=== PATIENT | female | born 1930 | race Caucasian/White ===

== ENCOUNTER 2017-05-22 16:52 | Observation (INO) | payer MEDICARE ==
[2017-05-22 17:46] LABS: BASOPHILS % (AUTO) 0.2 %; EOSINOPHILS % (AUTO) 0.8 %; HGB - HEMOGLOBIN 13.9 g/dL (12.0-16.0); LYMPHOCYTES # (AUTO) 0.8 10^3/uL (1.5-3.5); LYMPHOCYTES % (AUTO) 15.8 %; MEAN CORPUSCULAR HEMOGLOBIN 28.1 pg (27.0-31.0); MEAN CORPUSCULAR HGB CONC 32.7 g/dL (32.0-36.0); MEAN CORPUSCULAR VOLUME 86.1 fL (81.0-99.0); MEAN PLATELET VOLUME 8.9 fL (7.9-10.8); MONOCYTES # (AUTO) 0.8 10^3/uL (0.0-1.0); NEUTROPHILS # (AUTO) 3.7 10^3/uL (1.5-6.6); NEUTROPHILS % (AUTO) 68.2 %; PLT - PLATELET COUNT 127 10^3/uL (130-450); RED BLOOD COUNT 4.96 10^6/uL (4.20-5.40); RED CELL DISTRIBUTION WIDTH 15.3 % (12.0-15.0); WHITE BLOOD COUNT 5.4 x10^3/uL (4.8-10.8)
--- NOTE | 2017-05-22 17:46 | XRAY Preliminary Report ---
Exam: XR CHEST 2 VIEW X-RAY IMPRESSION: 1. Chronic lung disease. 2. Moderate cardiomegaly. Pacer. 3. Bilateral perihilar interstitial prominence, indeterminant as to whether this represents interstit ial edema versus an airway infection or viral syndrome. [facility] SITE ID: [id number]
[2017-05-22 17:56] LABS: CALCIUM 9.6 mg/dL (8.5-10.3); CREATININE 0.9 mg/dL (0.4-1.0)
[2017-05-22] MEDS ORDERED: ALBUTEROL NEB 2.5 MG/3 ML INH STA (17:56)
[2017-05-22] MEDS ORDERED: DEXAMETHASONE 10 MG/ML VIAL PO STA (17:56)
[2017-05-22] MEDS ORDERED: guaiFENesin/DEXTROMETHORPHAN 10 ML UDC PO STA (17:57)
[2017-05-22] MEDS ORDERED: BENZONATATE 100 MG CAPSULE PO STA (17:57)
--- NOTE | 2017-05-22 18:02 | XRAY Report ---
EXAM: CHEST RADIOGRAPHY EXAM DATE: 05/22/2017 05:21 PM. CLINICAL HISTORY: Shortness of breath and cough for 3 days. COMPARISON: None. TECHNIQUE: 2 views. FINDINGS: Lungs/Pleura: Overexpanded. Pleural and parenchymal scarring left base. Mild symmetrical perihilar in terstitial prominence. No effusion nor pneumothorax. Mediastinum: Moderate cardiomegaly. Remote sternotomy. Triple lead left subclavian biventricular pace r. Other: None. IMPRESSION: 1. Chronic lung disease. 2. Moderate cardiomegaly. Pacer. 3. Bilateral perihilar interstitial prominence, indeterminant as to whether this represents interstit ial edema versus an airway infection or viral syndrome. [facility] Referring Provider Line: [phone] SITE ID: [id number]
--- NOTE | 2017-05-22 18:04 | ED Physician Documentation ---
History of Present Illness - Stated complaint Stated Complaint: SOA - Chief complaint Chief Complaint: Resp - Additonal information Additional information: hx from pt and family arrived [place] from [facility] 5 days ago mild cough upon arrival sig worse cough next day inc dyspnea since unable to lay flat tripod position to aid resp effort no fever some chest discomfort with breathing leg edema is not new pmhx HTN HLD CAD s/p stent 2001 and CABG 2002 and hx EF is low so she has an AICD, CHF on lasix 20 QOD and 40 mg QOD compliant with meds entresto is a new rx for her Review of Systems Constitutional: denies: Fever, Chills Cardiac: reports: Chest pain / pressure Respiratory: reports: Dyspnea, Cough GI: denies: Abdominal Pain, Nausea, Vomiting Musculoskeletal: reports: Extremity swelling Endocrine: denies: Easy bruising / bleeding Immunocompromised: denies: Immunocompromised PD PAST MEDICAL HISTORY - Past Medical History Past Medical History: Yes Cardiovascular: Congestive heart failure, Hypertension, High cholesterol, Coronary artery disease, Angina, [place], Arrhythmia Respiratory: Asthma, Shortness of breath, Other Neuro: Dementia Endocrine/Autoimmune: None GI: GERD, Chronic constipation 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 : Incontinence HEENT: Chronic hearing loss Psych: Depression Musculoskeletal: Osteoarthritis, Chronic back pain Derm: None Other Past Medical History: chronic allergies - Past Surgical History Past Surgical History: Yes Cardiovascular: CABG, Coronary stent, AICD HEENT: Cataracts - Present Medications Home Medications: Ambulatory Orders Medication Instructions Recorded Confirmed Carboxymethyl/Glycerin/Poly80 1 drops EACHEYE DAILY PM 05/22/17 05/22/17 [Refresh Optive Advanced Drops] Carvedilol [Carvedilol] 6.25 mg PO BID 05/22/17 05/22/17 Clopidogrel Bisulfate [Clopidogrel] 75 mg PO DAILY 05/22/17 05/22/17 Furosemide [Furosemide] 20 mg PO BID 05/22/17 05/22/17 Lactobac No.41/Bifidobact No.7 2 cap PO DAILY PM 05/22/17 05/22/17 [Probiotic-10 3 Billion Cell Cp] Lovastatin [Lovastatin] 20 mg PO QPM 05/22/17 05/22/17 Nitroglycerin [Nitrostat] 0.4 mg SL Q5MIN PRN 05/22/17 05/22/17 Potassium Chloride [Klor-Con 10] 10 meq PO DAILY 05/22/17 05/22/17 Sacubitril/Valsartan [Entresto 24 1 tab PO BID 05/22/17 05/22/17 mg-26 mg Tablet] - Allergies Allergies/Adverse Reactions: Allergies Allergy/AdvReac Type Severity Reaction Status Date / Time No Known Drug Allergies Allergy Verified 05/22/17 17:03 - Social History Does the pt smoke?: No Smoking Status: Never smoker ETOH Use: Wine Does the pt have substance abuse?: No - Immunizations Immunizations are current?: Yes - POLST Patient has POLST: No PD ED PE NORMAL - Vitals Vital signs reviewed: Yes - HEENT HEENT: Atraumatic - Neck Neck: Supple, no meningeal sign - Cardiac Cardiac: RRR, Other (AICD / PPM L upper chest) - Respiratory Respiratory: Other (wet rales and manuel wheezing) - Abdomen Abdomen: Soft, Non tender - Extremities Extremities: No: No edema (manuel symm chronic (per family) edema) - Neuro Neuro: Alert and oriented X 3, No motor deficit, Normal speech - Psych Psych: Normal mood Results - Vitals Vitals: Vital Signs - 24 hr 05/22/17 05/22/17 16:56 18:05 Temperature 37.3 C Heart Rate 85 81 Respiratory 22 20 Rate Blood Pressure 138/98 H O2 Saturation 95 Oxygen O2 Source Room air - EKG (time done) 1705 Rate: Rate (enter#) (83) Other comments: Other comments (atrial sensed ventricula paced) - Labs Labs: Laboratory Tests 05/22/17 05/22/17 05/22/17 17:40 17:40 17:40 WBC 5.4 RBC 4.96 Hgb 13.9 Hct 42.7 MCV 86.1 MCH 28.1 MCHC 32.7 RDW 15.3 H Plt Count 127 L MPV 8.9 Neut # 3.7 Lymph # 0.8 L Overton # 0.8 Eos # 0.0 Baso # 0.0 Absolute Nucleated RBC 0.00 Nucleated RBC % 0.0 Sodium 137 Potassium 3.5 Chloride 100 L Carbon Dioxide 27 Anion Gap 10.0 BUN 18 Creatinine 0.9 Estimated GFR (MDRD) 59 L Glucose 107 H Calcium 9.6 Troponin I 0.04 B-Natriuretic Peptide 05/22/17 17:40 WBC RBC Hgb Hct MCV MCH MCHC RDW Plt Count MPV Neut # Lymph # Overton # Eos # Baso # Absolute Nucleated RBC Nucleated RBC % Sodium Potassium Chloride Carbon Dioxide Anion Gap BUN Creatinine Estimated GFR (MDRD) Glucose Calcium Troponin I B-Natriuretic Peptide 2262 H PD MEDICAL DECISION MAKING - ED course ED course: CXR does not show CHF so tried neb and steroids s relief but when BNP results it is markedly elevated despite reassuring CXR so also considered PE but pt only had a short flight and sx have been of gradual onset and worsening and she actually sounds wet on exam - so feel PE less likely given baseline EF of 30 some % feel prudent to admit for monitored diuresis, perhaps echo, could get serial trops though trop in ED neg after days of progressive sx is reassuring gave alesia, will see how she responds to that before adding nitrates with such a low EF records obtained from [facility] where pt had cardiac wup in Feb 2016 - her notes from that time state she had HLD CKD LBBB CHF CAD EF 30% V tach, she had a nuc stress and a cath and sounds like she had her ICD placed at that time records taken to hospitalist office Departure - Departure Disposition: 66 [facility] DC/Xfer Clinical Impression: Congestive heart failure Qualifiers: Congestive heart failure type: unspecified Congestive heart failure chronicity : unspecified Qualified Code(s): I50.9 - Heart failure, unspecified Dyspnea Qualifiers: Dyspnea type: unspecified Qualified Code(s): R06.00 - Dyspnea, unspecified Condition: Fair Discharge Date/Time: 05/22/17 19:05
[2017-05-22] MEDS ORDERED: CHERRY SYRUP 10 ML UDC PO ONE (18:16)
[2017-05-22] MEDS ORDERED: FUROSEMIDE 40 MG/4 ML VIAL IVP STA (18:31)
[2017-05-22] MEDS ORDERED: HYDROcod/ACETAM 5/325 MG TABLET PO PRN (18:32)
[2017-05-22] MEDS ORDERED: SODIUM CHLORIDE FLUSH 0.9% 10 ML SYRINGE IVP PRN (18:32)
[2017-05-22] MEDS ORDERED: ONDANSETRON ODT 4 MG TABLET TL PRN (18:32)
[2017-05-22] MEDS ORDERED: ACETAMINOPHEN 325 MG TABLET PO PRN (18:32)
[2017-05-22] MEDS ORDERED: ONDANSETRON 4 MG/2 ML VIAL IVP PRN (18:32)
[2017-05-22] MEDS ORDERED: NITROGLYCERIN SL 0.4 MG TABLET SL PRN (21:57)
--- NOTE | 2017-05-22 22:10 | HISTORY & PHYSICAL EXAMINATION ---
Chief Complaint - Chief Complaint Chief Complaint: Weakness and shortness of breath History of Present Illness - Admitted From Admitted From:: home - History Obtained From Records Reviewed: Last cardiology office visit note, 02/26/2016; cardiac catheterization 02/25/19 History obtained from: family (physicians) - History of Present Illness HPI Comment/Other: Mrs. Destini Dye is a pleasant 87-year-old female who is also the mother of Dr. Richard Dye and the [id number] of Dr. Disha Bishop, Chief hospitalist at [facility]. The patient has been visiting and Dr. Bishop notes that the patient has been having increasing shortness of breath with decreasing exercise tolerance. She has been spending most of her time in a recliner in the home and has been sleeping much of the time as well. After noticing this decline continue for the last 2 days following the , the patient was brought into the emergency department where she was found to be in congestive heart failure and a BNP of 2262. She is admitted to an observation bed for telemetry monitoring, fluid overlaod correction, and supplemental oxygen as needed. 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 : reports: Incontinence HEENT: reports: Chronic hearing loss Psych: reports: Depression Musculoskeletal: reports: Osteoarthritis, Chronic back pain Derm: reports: None MRSA Hx?: No Other Past Medical History: chronic allergies - Past Surgical History Cardiovascular: reports: CABG, Coronary stent, AICD HEENT: reports: Cataracts - Family & Social History Family History: Mother: (mother age 57 of septic shock), Father: , CVA/TIA (father of cva age 60), Sister: CVA/TIA, Diabetes, Type 2 , Hypertension, Brother: Cancer Family History Comment/Other: One sister after falling in the tub, breaking her hip and laying there for 2 days. Living arrangement: At home Living Situation: With spouse/s.o. - Substance History Use: Uses substance without health or social issues: NONE Abuse: Recurrent use of substance despite neg consequences: NONE Dependence: Experiences withdrawal or developed tolerances: NONE - POLST Patient has POLST: No POLST Status: Full Code Meds/Allgy - Home Medications Home Medications: Ambulatory Orders Medication Instructions Recorded Confirmed Carboxymethyl/Glycerin/Poly80 1 drops EACHEYE DAILY PM 05/22/17 05/22/17 [Refresh Optive Advanced Drops] Carvedilol [Carvedilol] 6.25 mg PO BID 05/22/17 05/22/17 Clopidogrel Bisulfate [Clopidogrel] 75 mg PO DAILY 05/22/17 05/22/17 Furosemide [Furosemide] 20 mg PO BID 05/22/17 05/22/17 Lactobac No.41/Bifidobact No.7 2 cap PO DAILY PM 05/22/17 05/22/17 [Probiotic-10 3 Billion Cell Cp] Lovastatin [Lovastatin] 20 mg PO QPM 05/22/17 05/22/17 Nitroglycerin [Nitrostat] 0.4 mg SL Q5MIN PRN 05/22/17 05/22/17 Potassium Chloride [Klor-Con 10] 10 meq PO DAILY 05/22/17 05/22/17 Sacubitril/Valsartan [Entresto 24 1 tab PO BID 05/22/17 05/22/17 mg-26 mg Tablet] - Allergies Allergies/Adverse Reactions: Allergies Allergy/AdvReac Type Severity Reaction Status Date / Time No Known Drug Allergies Allergy Verified 05/22/17 17:03 Review of Systems - Constitutional Constitutional: reports: Fatigue, Weakness. denies: Fever, Chills, Night sweats - Eyes Eyes: denies: Pain, Irritation, Blurred vision, Dipolpia - Ears, Nose & Throat Ears, Nose & Throat: denies: Ear pain, Nasal pain, Nosebleeds, Sore throat - Cardiovascular Cariovascular: reports: Edema, Exertional dyspnea, Decr. exercise tolerance, Orthopnea. denies: Chest pain, Syncope - Respiratory Respiratory: reports: Cough, SOB at rest, SOB with exertion. denies: Sputum production, Wheezing, Hemoptysis - Gastrointestinal Gastrointestinal: denies: Abdominal pain, Abdominal distention, Constipation, Diarrhea, Rectal bleeding - Genitourinary Genitourinary: denies: Dysuria, Frequency, Hematuria, Nocturia - Musculoskeletal Musculoskeletal: denies: Muscle pain, Back pain, Muscle aches, Stiffness - Integumentary Integumentary: denies: Rash, Pruritis, Lesions, Dryness - Neurological Neurological: reports: General weakness. denies: Focal weakness, Headache - Psychiatric Psychiatric: denies: Depression, Anxiety, Suicidal, Hallucinations - Endocrine Endocrine: denies: Polyuria, Polydypsia, Polyphagia - Hematologic/Lymphatic Hematologic/Lymphatic: denies: Anemia, Bruising, Petechiae, Lymphadenopathy - All Other Systems All Other Systems: reports: Reviewed and negative Exam - Vital Signs Reviewed Vital Signs: Yes Vital Signs: Vital Signs x48h Temp Pulse Resp BP BP Pulse Ox 05/22/17 19:25 129/73 05/22/17 19:23 36.9 C 81 24 120/104 H 94 - Physical Exam General Appearance: positive: No acute distress, Alert Eyes Bilateral: positive: Normal inspection, PERRL, EOMI, No lid inflammation, Conjunctivae nml, No scleral icterus ENT: positive: ENT inspection nml, Pharynx nml, No signs of dehydration Neck: positive: Nml inspection, Thyroid nml, No JVD, Trachea midline. negative : Thyromegaly Respiratory: positive: Chest non-tender, Wheezes, Rales. negative: Breath sounds nml, Rhonchi Cardiovascular: positive: Regular rate & rhythm, No murmur, No gallop Peripheral Pulses: positive: 1+ Abdomen: positive: Non-tender, No organomegaly, Nml bowel sounds, No distention. negative: Guarding, Rebound Back: positive: Nml inspection. negative: CVA tenderness (R), CVA tenderness (L ) Skin: positive: Color nml, No rash, Warm, Dry. negative: Cyanosis Extremities: positive: Non-tender, Full ROM, Pedal edema. negative: Calf tenderness, Joint swelling Neurologic/Psychiatric: positive: Oriented x3, CN's nml (2-12), Motor nml, Sensation nml, Mood/affect nml Conclusion/Plan - Problem List (1) Congestive heart failure Conclusion/Plan: The patient has a BNP of 2262, and her chest x-ray does show some pulmonary vascular markings. An echocardiogram done 02/04/2016 shows that her ejection fraction is 25-30%. We will gently diurese her and monitor her while we are correcting her fluid overload. She will be admitted to an observation bed on telemetry overnight and will obtain an echocardiogram in the morning to compare with the last one which is about 16 months old. Qualifiers: Congestive heart failure type: systolic Congestive heart failure chronicity : acute on chronic Qualified Code(s): I50.23 - Acute on chronic systolic ( congestive) heart failure (2) History of coronary artery disease Conclusion/Plan: A cardiac catheterization done on March 02, 2016 showed mild coronary artery disease with nonobstructive disease in the right coronary artery and circumflex arteries as well as sluggish but patent flow in her left anterior descending artery graft. The patient has not been complaining of any chest pain but has been short of breath. Continue home medications. (3) CKD (chronic kidney disease), stage III Conclusion/Plan: Well-managed, creatinine 0.9 on admission. We will monitor closely as we are diuresing the patient. (4) History of left bundle branch block Conclusion/Plan: Noted. The patient has an atrially sensed ventricularly paced rhythm and an AICD in place. - Lab Results Lab results reviewed: Yes Fish Bones: 05/22/17 17:40 05/22/17 17:40 - Diagnostic Imaging Results Diagnostic Imaging Results: positive: Final report reviewed Diagnostic Imaging Results Comments: EXAM: CHEST RADIOGRAPHY EXAM DATE: 05/22/2017 05:21 PM. CLINICAL HISTORY: Shortness of breath and cough for 3 days. COMPARISON: None. TECHNIQUE: 2 views. FINDINGS: Lungs/Pleura: Overexpanded. Pleural and parenchymal scarring left base. Mild symmetrical perihilar interstitial prominence. No effusion nor pneumothorax. Mediastinum: Moderate cardiomegaly. Remote sternotomy. Triple lead left subclavian biventricular pacer. Other: None. IMPRESSION: 1. Chronic lung disease. 2. Moderate cardiomegaly. Pacer. 3. Bilateral perihilar interstitial prominence, indeterminant as to whether this represents interstitial edema versus an airway infection or viral syndrome. - EKG Results EKG Interpreted Independently: Yes EKG Comparison: No prior EKG EKG Findings: Ventricular paced rhythm, rate 83. Core Measures - Anticipated LOS I expect patient to be DC'd or transferred within 96 hours.: Yes - DVT/VTE - Prophylaxis VTE/DVT Device ordered at admit?: Yes
[2017-05-22] MEDS: SODIUM CHLORIDE FLUSH 0.9% 10 ML SYRINGE IVP SCH (23:58)
[2017-05-23] MEDS ORDERED: FUROSEMIDE 40 MG TABLET PO SCH (08:00)
[2017-05-23] MEDS: SPIRONOLACTONE 25 MG TABLET PO SCH ×2 (08:34→10:28)
[2017-05-23] MEDS: SODIUM CHLORIDE FLUSH 0.9% 10 ML SYRINGE IVP SCH (08:44)
[2017-05-23] MEDS ORDERED: predniSONE 20 MG TABLET PO STA (08:56)
[2017-05-23] MEDS ORDERED: FUROSEMIDE 40 MG/4 ML VIAL IVP STA (08:57)
[2017-05-23] MEDS ORDERED: IPRATROPIUM/ALBUTEROL 3 ML NEB INH PRN (08:58)
[2017-05-23] MEDS ORDERED: SACUBITRIL PO SCH (09:00)
[2017-05-23] MEDS ORDERED: CARVEDILOL 3.125 MG TABLET PO SCH (09:00)
[2017-05-23] MEDS ORDERED: VALSARTAN PO SCH (09:00)
[2017-05-23] MEDS ORDERED: NON FORMULARY MED (Carvedilol [Carvedilol] 6.25 MG) PO SCH (09:00)
[2017-05-23] MEDS ORDERED: CLOPIDOGREL 75 MG TABLET PO SCH (09:00)
[2017-05-23] MEDS ORDERED: POLYETHYLENE GLYCOL 3350 17 GM PACKET PO SCH (09:00)
[2017-05-23] MEDS: ALBUTEROL NEB 2.5 MG/3 ML INH SCH ×3 (09:02→16:37)
[2017-05-23] MEDS ORDERED: IOPAMIDOL-300 100 ML VIAL ONE (13:14)
[2017-05-23] MEDS ORDERED: IOPAMIDOL-300 100 ML VIAL IVP ONE (14:05)
--- NOTE | 2017-05-23 14:28 | CT Preliminary Report ---
Exam: CT CHEST ANGIO (PE) IMPRESSION: 1. Mildly suboptimal exam due to respiratory motion at the lung bases. However, no evidence of pulmon roseann emboli. 2. Multifocal air trapping with bronchial wall thickening suggesting airways disease such as bronchit is. There is also saber-sheath configuration of the trachea, which is highly correlated with COPD. 3. Abnormal caliber of the main pulmonary artery, a soft marker of pulmonary hypertension. 4. Cardiomegaly, most prominence of the left ventricle and atrium, with reflux of contrast into the I VC suggesting right heart failure as provided in the history. There is also a small left pleural effu seb. 5. 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 6. Few scattered small (less than size is only a) nonspecific solid pulmonary nodules with findings o f prior granulomatous disease. Per Fleischner guidelines In a low-risk patient no follow-up is necess roseann. In a high risk patient consider follow-up CT chest in 12 months for reevaluation. 6. Additional findings as above.. [facility] SITE ID: [id number]
--- NOTE | 2017-05-23 14:54 | CT Report ---
EXAM: CT ANGIOGRAM CHEST EXAM DATE: 05/23/2017 02:05 PM. CLINICAL HISTORY: New right-sided heart failure and shortness of breath after travel. COMPARISON: Chest radiograph 05/22/2017. TECHNIQUE: Routine helical imaging was performed through the chest in the pulmonary arterial phase. I V Contrast: Amt/type. Reconstructions: Coronal 3-D MIP reconstructions.Sagittal and coronal. In accordance with CT protocol optimization, one or more of the following dose reduction techniques w ere utilized for this exam: automated exposure control, adjustment of mA and/or KV based on patient s ize, or use of iterative reconstructive technique. FINDINGS: Note that the extreme right posterior lateral lung base is excluded from the [id number]. Pulmonary Arteries: Diagnostic quality: Adequate through the segmental arteries, with the exception of the lung bases, gr eater on the right, due to mild respiratory motion artifact. No evidence for acute or chronic pulmona ry emboli. RV/LV is within normal limits. There is no interventricular septal bowing. There is reflux of contras t into the IVC and hepatic veins suggesting right heart dysfunction as provided in the history. Lungs/Pleura: -No mass or consolidation. There is a small layering left pleural effusion. No right pleural effusion . No evidence of edema. No pneumothorax. There is geographic attenuation throughout both lungs with m ild circumferential airway wall thickening suggesting airways disease such as bronchitis and air-trap ping. The central airways are patent. There is saber-sheath configuration of the upper trachea which has been highly correlated with COPD (5/29). -Respiratory motion artifact could obscure small nodules. There is a nonspecific multangular 5 mm lef t upper lobe pulmonary nodule near the level of the main pulmonary artery bifurcation (5/62). Nonspec ific solid 5 mm nodule versus possible mucous plug in the superior segment left lower lobe (5/74). No nspecific subpleural nodule near the right lung apex peripherally measures 3 mm (5/30). A few scatter ed benign calcified granulomata are present in keeping with prior granulomatous disease, for example at the right lung apex (4/34). Mediastinum: The heart is moderately enlarged with greatest enlargement of the left atrium and ventri carmen. No significant pericardial effusion. AICD/pacemaker leads noted as well as prior median sternoto my and CABG. No abnormally enlarged mediastinal or hilar lymph nodes. Calcified left hilar lymph node s are present in keeping with prior granulomatous disease. Main pulmonary arterial caliber is increas ed measuring 35 mm, a soft marker of pulmonary hypertension. Thoracic Aorta: There is fusiform aneurysm of the ascending thoracic aorta measuring up to 4.5 cm, wi th diameter normalizing in the aortic arch. Contrast bolus timing does not allow evaluation for disse ction. There is moderate aortic arch and descending thoracic aortic calcific atherosclerosis. Upper Abdomen: Partially visualized colonic diverticulosis without evidence of acute diverticulitis. Otherwise unremarkable. Other: Left chest wall subclavian multilead pacemaker/AICD. No acute osseous abnormality. No suspicious focal osseous lesion. There is diffuse osseous deminerali zation. Patient is post median sternotomy. There is accentuated thoracic kyphosis with multilevel deg enerative spondylosis and S-shaped thoracolumbar scoliosis. IMPRESSION: 1. Mildly suboptimal exam due to respiratory motion at the lung bases. However, no evidence of pulmon roseann emboli. 2. Multifocal air trapping with bronchial wall thickening suggesting airways disease such as bronchit is. There is also saber-sheath configuration of the trachea, which is highly correlated with COPD. 3. Abnormal caliber of the main pulmonary artery, a soft marker of pulmonary hypertension. 4. Cardiomegaly, most prominent of the left ventricle and atrium, with reflux of contrast into the IV C suggesting right heart failure as provided in the history. There is also a small left pleural effus ion. 5. 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 6. A few scattered small (<6 mm) nonspecific solid pulmonary nodules with findings of prior granuloma tous disease. Per Fleischner guidelines, in a low-risk patient no follow-up is necessary. In a high r isk patient consider follow-up CT chest in 12 months for reevaluation. 6. Additional findings as above. [facility] Referring Provider Line: [phone] SITE ID: [id number]
--- NOTE | 2017-05-23 16:36 | Discharge Plan ---
Discharge Plan Disposition: Home, Self Care Condition: Fair Prescriptions: Ipratropium/Albuterol [Duoneb] 3 ml INH RTQID PRN #120 neb PRN Reason: Shortness Of Air/Wheezing Prednisone 10 mg PO DAILY #1 tab.ds.pk Spironolactone [Aldactone] 25 mg PO DAILY #30 tablet Diet: Low Sodium Activity Restrictions: Activity as Tolerated Shower Restrictions: No Driving Restrictions: No Additional Instructions or Follow Up instructions: you were placed in observation because of severe shortness of breath. We have found you to have two problems: one with severe bronchitis requiring nebulizer treatment and steroids, and the other was new right sided heart failure on top of decompensated old left heart failure. We did speak to the Wellness Rn bone plant supervisor for [facility] Dr. Staples, and he confirmed that the right heart was normal a year ago. So we did a pulmonary angiogram to make sure you did not have a pulmonary embolic clot causing this problem since you just have been travelling. That angiogram was negative except for embolism but did have a thoracic aortic aneurysm of 4.5 cm. You do have severe right sided heart failure on the CT of the chest as well. You will need to finish a course of steroids and a course of antibiotics and those have been given to you. You also need to resume duoneb which is a bronchial tube dilator you used years ago but stopped. You have the machine at home and need to refill the duoneb drops that go in the machine. We have also started you on spironolactone. We are asking you to see a Wellness Rn in the group as soon as possible. You have an appointment for MondayMay 29, at 9 am, Dr. Macias. No Smoking: If you smoke, Please STOP! Call for help. Follow-up with: SAMIR GUAJARDO MD [Primary Care Provider] -
[2017-05-23 17:39] VITALS: BP 106/58
[2017-05-23] MEDS ORDERED: CARBOXYMETHYL EACHEYE SCH (21:00)
[2017-05-23] MEDS ORDERED: [UNRECOGNIZED DRUG - OTHER] EACHEYE SCH (21:00)
[2017-05-23] MEDS ORDERED: ATORVASTATIN 10 MG TABLET PO SCH (21:00)
[2017-05-23] MEDS ORDERED: [UNRECOGNIZED DRUG - REMARK] PO SCH (21:00)
[2017-05-23] MEDS ORDERED: GLYCERIN EACHEYE SCH (21:00)
[2017-05-23] MEDS ORDERED: POLY80 EACHEYE SCH (21:00)
[2017-05-23] MEDS ORDERED: NON FORMULARY MED (Lovastatin [Lovastatin] 20 MG) PO SCH (21:00)
--- NOTE | 2017-05-24 20:39 | DISCHARGE SUMMARY ---
"Discharge Summary Admit Date: 05/22/17 Discharge Date: 05/23/17 Discharging Provider: Shadia Mcclelland MD Primary Care Provider: Maria E Doss MD [facility], [place], [place] Code Status: Do Not Attempt Resuscitation Condition at Discharge: Fair Discharge Disposition: 01 Home, Self Care - DIAGNOSES Discharge Diagnoses with Status of Each Condition: Acute on chronic systolic congestive heart failure Class 3 with LV diastolic dysfunction acute right sided heart failure acute bronchitis due to viral infection History of yuhaaviatam coronary artery disease Chronic kidney disease stage 3 - HPI History of Present Illness: Mrs. Destini Dye is a pleasant 87-year-old female who is also the mother of Dr. Richard Dye and the [id number]-lal of Dr. Disha Bishop, Chief hospitalist at [facility]. The patient has been visiting and Dr. Bishop notes that the patient has been having increasing shortness of breath with decreasing exercise tolerance. She has been spending most of her time in a recliner in the home and has been sleeping much of the time as well. After noticing this decline continue for the last 2 days following the , the patient was brought into the emergency department where she was found to be in congestive heart failure and a BNP of 2262. She is admitted to an observation bed for telemetry monitoring, fluid overlaod correction, and supplemental oxygen as needed. History - Past Medical History Cardiovascular: reports: Congestive heart failure, Hypertension, High cholesterol, Coronary artery disease, Angina, [place], Arrhythmia Respiratory: reports: Asthma, Shortness of breath, Other Neuro: reports: Dementia Endocrine/Autoimmune: reports: None GI: reports: GERD, Chronic constipation [employer]: reports: None : reports: Incontinence HEENT: reports: Chronic hearing loss Psych: reports: Depression Musculoskeletal: reports: Osteoarthritis, Chronic back pain Derm: reports: None MRSA Hx?: No Other Past Medical History: chronic allergies - Past Surgical History Cardiovascular: reports: CABG, Coronary stent, AICD HEENT: reports: Cataracts - CONSULTS | PROCEDURES Procedures: 1. Chest x-ray showing chronic lung disease, moderate cardiomegaly, pacer, bilateral perihilar interstitial prominence. Indeterminate as to whether this represents interstitial edema versus airway infection or viral syndrome. 2. Chest/CTA. No pulmonary emboli. Mildly suboptimal due to respiratory motion. Multifocal air trapping with bronchial wall thickening suggesting airway disease such as bronchitis. Saber-sheath configuration of the trachea which is highly correlated with COPD. Abnormal caliber of the main pulmonary artery, a soft marker of pulmonary hypertension. Cardiomegaly, most prominent of the left ventricle and atrium. Reflux of contrast into the IVC suggesting right heart failure as provided in the history. Small left pleural effusion. 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 Few scattered less than 6 mm nonspecific solid pulmonary nodules with findings of prior granulomatous disease. Per Fleischner guidelines, in a low risk patient, no further follow-up is necessary. In a high risk patient consider follow-up CT in 12 months for reevaluation. 3. Echocardiogram. Final reading is pending. Cardiology should call for final report. Initial report shows severe left ventricular enlargement. Left ventricular wall thickness is normal. Overall left ventricular systolic function is moderately to severely impaired with an ejection fraction of 30-35% . Moderate global hypokinesis of left ventricle contractility. Diastole are difficult is difficult to assess with arrhythmia. Severe right ventricular enlargement. Right ventricular systolic function is at the low end of normal. Pacemaker leads seen in right atrium and right ventricle. Severe increase in the left atrial volume index. Moderate right atrial enlargement. Mild to moderate aortic regurgitation. Moderate to severe mitral regurgitation. Mild to moderate tricuspid regurgitation. Moderately abnormal right heart pressures. Right ventricular systolic pressure at rest is 63 mmHg. Moderate pulmonic regurgitation. - HOSPITAL COURSE Hospital Course: She was initially treated as acute COPD exacerbation in the emergency room. Her chest x-ray was really unremarkable other than mild air trapping. She received bronchodilators and steroids. When her BNP came back severely elevated she was then treated as acute systolic congestive heart failure. She was placed in observation, received IV Lasix for several doses. She was also doubled up on her oral lasix dose from 20 mg to 40 mg po daily. She did achieve adequate diuresis but BNP did not move much. However she was clinically much improved. On admission she had gurgling lungs, severe wheezing , tachypnea, air hunger, leg edema and use of accessory muscles. With treatment , at discharge, lungs had prolonged and exhalation, but no longer wheezing and crackles have resolved. Edema had resolved. CT angiogram of chest was done to make sure that this woman who had been traveling recently did not have a PE. Her deburrer was not in the office but we spoke to Dr. Staples who was on -call for her deburrer Dr. Stephen at [facility], [place], [place]. He reviewed the echocardiogram from February 2016 and her new right heart dysfunction is noted. The patient is discharged with new medications of spironolactone, Medrol Dosepak , and DuoNeb. We did attempt to get a nebulizer machine for her while here. However her Medicare advantage plan was not accepted in any of the local pharmacies on the [place]. She states that she has a nebulizer machine at home and she will wait at home to use her new DuoNeb on that machine at home. Her Lasix was increased to 40 mg a day. She does admit that sometimes she does not like to take it because of urinary incontinence. She was strongly encouraged to make sure she stays on 40 mg a day. She took home pads, underwear, and she was delighted with how it help with incontinence. She will be looking to get a durable medical good prescription from her primary care provider to help her with this at home. Appointment was attempted for Monday of this week. The patient flies back to [place] on . However there were no openings in the patient is to be seen on Monday morning with her deburrer. - ALLERGIES Allergies/Adverse Reactions: Allergies Allergy/AdvReac Type Severity Reaction Status Date / Time No Known Drug Allergies Allergy Verified 05/22/17 17:03 - MEDICATIONS Home Medications: Ambulatory Orders Medication Instructions Recorded Confirmed Carboxymethyl/Glycerin/Poly80 1 drops EACHEYE DAILY PM 05/22/17 05/22/17 [Refresh Optive Advanced Drops] Carvedilol 6.25 mg PO BID 05/22/17 05/22/17 Clopidogrel Bisulfate [Clopidogrel] 75 mg PO DAILY 05/22/17 05/22/17 Furosemide 40 mg PO DAILY 05/22/17 05/23/17 Lactobac No.41/Bifidobact No.7 2 cap PO DAILY PM 05/22/17 05/22/17 [Probiotic-10 3 Billion Cell Cp] Lovastatin 20 mg PO QPM 05/22/17 05/22/17 Nitroglycerin [Nitrostat] 0.4 mg SL Q5MIN PRN 05/22/17 05/22/17 Potassium Chloride [Klor-Con 10] 10 meq PO DAILY 05/22/17 05/22/17 Sacubitril/Valsartan [Entresto 24 1 tab PO BID 05/22/17 05/22/17 mg-26 mg Tablet] Ipratropium/Albuterol [Duoneb] 3 ml INH RTQID PRN #120 neb 05/23/17 Prednisone 10 mg PO DAILY #1 tab.ds.pk 05/23/17 Spironolactone [Aldactone] 25 mg PO DAILY #30 tablet 05/23/17 - PHYSICAL EXAM AT DISCHARGE General Appearance: positive: No acute distress, Alert Eyes Bilateral: positive: PERRL, EOMI ENT: positive: Other (rhinorrheais copious, nasal tone of voice ) Neck: positive: No JVD. negative: Stiff neck, Carotid bruit Respiratory: positive: Chest non-tender, Other (prolonged end exhalation). negative: Wheezes, Rales, Rhonchi Cardiovascular: positive: Regular rate & rhythm, Systolic murmur. negative: Gallop/S4, Friction rub Peripheral Pulses: positive: 1+ Abdomen: positive: Non-tender, No organomegaly, Nml bowel sounds, No distention Skin: positive: Warm, Dry Extremities: positive: No pedal edema Neurologic/Psychiatric: positive: Oriented x3, CN's nml (2-12), Motor nml - LABS Result Diagrams: 05/22/17 17:40 05/22/17 17:40"
== END 2017-05-23 17:50 | disposition home or self-care (01) ==
LOC: ED 16:52 → OBS 18:32
PROVIDERS: ADMIT Hospitalist; ATTEND Internal Medicine
DX: I13.0 Hypertensive heart and chronic kidney disease with heart failure and stage 1 through stage 4 chronic kidney disease, or unspecified chronic kidney disease (principal); I50.43 Acute on chronic combined systolic (congestive) and diastolic (congestive) heart failure; I50.811 Acute right heart failure; J20.8 Acute bronchitis due to other specified organisms; N18.3 Chronic kidney disease, stage 3 (moderate); I08.3 Combined rheumatic disorders of mitral, aortic and tricuspid valves; I71.2 Thoracic aortic aneurysm, without rupture; R32 Unspecified urinary incontinence; J45.909 Unspecified asthma, uncomplicated; I25.119 Atherosclerotic heart disease of native coronary artery with unspecified angina pectoris; E78.5 Hyperlipidemia, unspecified; F03.90 Unspecified dementia, unspecified severity, without behavioral disturbance, psychotic disturbance, mood disturbance, and anxiety; I25.2 Old myocardial infarction; I44.7 Left bundle-branch block, unspecified; Z95.810 Presence of automatic (implantable) cardiac defibrillator; Z95.5 Presence of coronary angioplasty implant and graft; Z95.1 Presence of aortocoronary bypass graft; Z79.02 Long term (current) use of antithrombotics/antiplatelets
CPT/HCPCS: 36415; 71046; 71275; 80048; 83880; 84484; 85025; 93005; 93306; 94640; 96374; 96376; 99283; 99284; A9270; G0378; J7512; Q9967